=== PATIENT | female | born 1955 | race African-American/Black ===

== ENCOUNTER 2018-09-17 21:35 | Observation (INO) ==
[2018-09-17] MEDS ORDERED: FUROSEMIDE 100 MG/10 ML VIAL IV STA (22:18)
[2018-09-17 23:07] LABS: Neutrophils % 62.2 % (38.7-73.9)
[2018-09-17 23:19] LABS: Mean Platelet Volume 11.8 FL (9.6-12.0)
[2018-09-17 23:28] LABS: Basophils % 0.4 % (0.0-0.8); Eosinophils # 0.1 10*3/uL (0.0-0.87); Eosinophils % 1.9 % (0.00-10.9); Hematocrit 30.2 VOL% (35.7-47.0); Hemoglobin 8.3 GM/DL (12.0-16.0); Immature Granulocytes % 0.2 %; Immature Granulocytes Absolute 0.01 #; Lymphocytes # 1.4 10*3/uL (1.4-4.0); Lymphocytes % 26.4 % (21.3-54.2); Mean Corpuscular HGB Conc 27.5 GM/DL (32-36); Mean Corpuscular Volume 93.2 FL (87-102); Monocytes % 8.9 % (1.7-12.7); Platelet Count 206 T/CUMM (130-400); Red Blood Count 3.24 MC/CUMM (3.8-5.5); Red Cell Distribution Width 16.7 % (9.3-17.3); White Blood Count 5.2 T/CUMM (4-12)
[2018-09-17 23:33] LABS: Alanine Aminotransferase 13 U/L (13-56); Alkaline Phosphatase 94 U/L (45-117); Aspartate Amino Transferase 9 U/L (0-37); Bilirubin,Total < 0.39 MG/DL (0.2-1.0); Blood Urea Nitrogen 60 MG/DL (7-18); Calcium 8.5 MG/DL (8.5-10.1); Glucose 106 MG/DL (74-106); Osmolality,Calculated 308.4 MOS/KG (273-304); Total Protein 6.9 G/DL (6.4-8.3)
[2018-09-18] MEDS ORDERED: ONDANSETRON 4 MG/2 ML VIAL IV PRN (00:45)
[2018-09-18] MEDS: SODIUM CHLORIDE 0.9% 1,000 ML IV SCH ×4 (01:34→21:08)
[2018-09-18 01:45] LABS: Bilirubin,Total 0.5 MG/DL (0.2-1.0); Calcium 8.9 MG/DL (8.5-10.1); Osmolality,Calculated 309.4 MOS/KG (273-304); Total Protein 7.4 G/DL (6.4-8.3)
[2018-09-18 01:50] LABS: Risk Ratio 2.78; Thyroid Stimulating Hormone 3.84 uIU/ml (0.358-3.74); VLDL CHOLESTEROL 17.6 MG/DL
[2018-09-18] MEDS ORDERED: ALBUTEROL 2.5 MG/3 ML NEB RESP TX PRN (04:24)
[2018-09-18 05:50] LABS: Amorphous Crystals,Urine Occasional /HPF (Few); Apearance,Urine CLEAR (Clear); Bacteria,Urine Occasional /HPF (Few); Bilirubin,Urine Negative (Negative); Blood, Urine Negative (Negative); Glucose,Urine (UA) Negative (Negative); Ketones,Urine Negative (Negative); Mucus,Urine Occasional /LPF (Occasional); Nitrite,Urine Negative (Negative); Protein,Urine Negative; RBC,Urine <1 /HPF (0-4); Squamous Epithelial Cell,Urine Occasional /HPF (0-10); Urine Color Straw (Yellow); Urine Specific Gravity 1.006 (1.001-1.035); Urine Urobilinogen < 2.0 EU/DL (0.2-1.0); WBC,Urine <1 /HPF (0-6)
[2018-09-18] MEDS: ALBUTEROL/IPRATROPIUM 3 ML NEB RESP TX SCH ×4 (07:34→19:18)
[2018-09-18] MEDS ORDERED: FUROSEMIDE 80 MG TABLET PO SCH (09:00)
[2018-09-18] MEDS: CARVEDILOL 25 MG TABLET PO SCH ×2 (09:11→17:02)
[2018-09-18] MEDS: PANTOPRAZOLE 40 MG TABLET PO SCH (09:11)
[2018-09-18] MEDS: APIXABAN 5 MG TABLET PO SCH ×2 (09:11→21:08)
[2018-09-18] MEDS: DIGOXIN 0.125 MG TABLET PO SCH (14:14)
[2018-09-18] MEDS ORDERED: LOSARTAN 50 MG TABLET PO SCH (21:00)
[2018-09-19] MEDS: SODIUM CHLORIDE 0.9% 1,000 ML IV SCH ×2 (03:36→18:33)
[2018-09-19 06:36] LABS: Basophils % 0.7 % (0.0-0.8); Eosinophils # 0.1 10*3/uL (0.0-0.87); Eosinophils % 2.4 % (0.00-10.9); Hematocrit 29.5 VOL% (35.7-47.0); Hemoglobin 8.4 GM/DL (12.0-16.0); Immature Granulocytes % 0.2 %; Immature Granulocytes Absolute 0.01 #; Lymphocytes % 24.2 % (21.3-54.2); Mean Corpuscular HGB Conc 28.5 GM/DL (32-36); Mean Corpuscular Volume 91.9 FL (87-102); Mean Platelet Volume 12.2 FL (9.6-12.0); Monocytes % 10.4 % (1.7-12.7); Neutrophils % 62.1 % (38.7-73.9); Platelet Count 176 T/CUMM (130-400); Red Blood Count 3.21 MC/CUMM (3.8-5.5); Red Cell Distribution Width 16.6 % (9.3-17.3); White Blood Count 4.2 T/CUMM (4-12)
[2018-09-19 06:45] LABS: Calcium 8.8 MG/DL (8.5-10.1); Osmolality,Calculated 302.7 MOS/KG (273-304)
[2018-09-19 07:08] LABS: Hypochromasia 1+
[2018-09-19 07:09] LABS: Platelet Estimate Adequate
[2018-09-19] MEDS: ALBUTEROL/IPRATROPIUM 3 ML NEB RESP TX SCH ×3 (07:10→14:11)
[2018-09-19] MEDS ORDERED: IRON SUCROSE 200 MG in SODIUM CHLORIDE 0.9% 100 ML IV ONE (08:00)
[2018-09-19] MEDS: CARVEDILOL 25 MG TABLET PO SCH ×2 (10:43→17:00)
[2018-09-19] MEDS: PANTOPRAZOLE 40 MG TABLET PO SCH (10:43)
[2018-09-19] MEDS: APIXABAN 5 MG TABLET PO SCH (10:43)
[2018-09-19] MEDS ORDERED: FERROUS SULFATE 325 MG TABLET PO SCH (14:30)
[2018-09-19] MEDS: DIGOXIN 0.125 MG TABLET PO SCH (15:00)
[2018-09-19 16:43] VITALS: BP 134/67
== END 2018-09-19 18:44 | disposition home health service (06) ==
LOC: EDUNIT# → EDBD → N.ED 21:35 → N.EDINP 21:35 → N.TELES 09-18 02:40
PROVIDERS: ADMIT Internal Medicine; ATTEND Internal Medicine

== ENCOUNTER 2020-03-07 11:49 | Inpatient (IN) ==
[2020-03-07 12:43] LABS: Basophils % 0.5 % (0.0-0.8); Eosinophils % 0.2 % (0.00-10.9); Hematocrit 34.3 VOL% (35.7-47.0); Hemoglobin 10.2 GM/DL (12.0-16.0); Immature Granulocytes % 0.6 %; Immature Granulocytes Absolute 0.05 #; Lymphocytes # 1.1 10*3/uL (1.4-4.0); Lymphocytes % 12.2 % (21.3-54.2); Mean Corpuscular HGB Conc 29.7 GM/DL (32-36); Mean Corpuscular Volume 97.7 FL (87-102); Mean Platelet Volume 11.5 FL (9.6-12.0); Monocytes % 7.9 % (1.7-12.7); Neutrophils % 78.6 % (38.7-73.9); Platelet Count 171 T/CUMM (130-400); Red Blood Count 3.51 MC/CUMM (3.8-5.5); Red Cell Distribution Width 16.5 % (9.3-17.3); White Blood Count 8.7 T/CUMM (4-12)
[2020-03-07 13:00] LABS: Albumin 3.1 G/DL (3.4-5.0); Bilirubin,Total 0.4 MG/DL (0.2-1.0); Calcium 8.3 MG/DL (8.5-10.1); Osmolality,Calculated 289.3 MOS/KG (273-304); Total Protein 7.9 G/DL (6.4-8.3)
[2020-03-07 14:01] LABS: Bacteria,Urine Moderate /HPF (Few); Bilirubin,Urine Negative (Negative); Blood, Urine Negative (Negative); Glucose,Urine (UA) Negative (Negative); Ketones,Urine Negative (Negative); Nitrite,Urine Negative (Negative); Protein,Urine 100 MG/DL; RBC,Urine 27 /HPF (0-4); Squamous Epithelial Cell,Urine Occasional /HPF (0-10); Urine Appearance CLOUDY (Clear); Urine Color Yellow (Yellow); Urine Specific Gravity 1.017 (1.001-1.035); WBC,Urine 756 /HPF (0-6)
[2020-03-07] MEDS ORDERED: LEVOFLOXACIN INJ 750 MG in PREMIX 1 EACH IV STA (14:14)
[2020-03-07 14:22] LABS: Barbiturates Screen,Urine Negative (Negative); Benzodiazepines Screen,Urine Negative (Negative); Cannabinoid Screen,Urine Negative (Negative); Opiate Screen,Urine Negative (Negative); Phencyclidine Screen,Urine Negative (Negative)
[2020-03-07 16:17] LABS: Pt O2 Delivery Device Simple Mask
[2020-03-07 16:18] LABS: ABG Base Excess 5.3 MMOL/L (-2.5-2.5); ABG HCO3 29.2 MMOL/L (20-26); ABG Oxygen Saturation 98.4 % (95-100); ABG TCO2 36.3 MMOL/L (23-27)
[2020-03-07 16:25] LABS: ABG PH 7.144 (7.35-7.45)
[2020-03-07] MEDS ORDERED: ALBUTEROL 2.5 MG/3 ML NEB RESP TX PRN (17:50)
[2020-03-07 18:18] LABS: PT Patient Result 11.2 SECS (9.8-11.9)
[2020-03-07 18:28] LABS: Troponin I < 0.015 NG/ML (0.00-0.045)
[2020-03-07] MEDS ORDERED: LEVOFLOXACIN INJ 0 ML IV ONE (19:34)
[2020-03-07] MEDS: CEFEPIME 1,000 MG in SODIUM CHLORIDE 0.9% 100 ML IV SCH (20:06)
[2020-03-07 20:07] LABS: Thyroid Stimulating Hormone 2.71 uIU/ml (0.358-3.74)
[2020-03-07] MEDS: PANTOPRAZOLE 40 MG TABLET PO SCH (21:18)
[2020-03-07] MEDS: ENOXAPARIN 40 MG/0.4 ML SYRINGE SUBCUT SCH (21:18)
[2020-03-08] MEDS: CEFEPIME 1,000 MG in SODIUM CHLORIDE 0.9% 100 ML IV SCH ×4 (00:07→22:09)
[2020-03-08] MEDS: OSELTAMIVIR 6 MG/ML 60 ML/BOTTLE PO SCH ×3 (02:44→22:10)
[2020-03-08 03:47] LABS: ABG Base Excess 7.1 MMOL/L (-2.5-2.5); ABG HCO3 37.9 MMOL/L (20-26); ABG Oxygen Saturation 98.4 % (95-100); ABG PO2 133.6 MM HG (80-95); ABG TCO2 41.1 MMOL/L (23-27); Allen Test Positive; Pt O2 Delivery Device BIPAP
[2020-03-08 03:50] LABS: ABG PCO2 102.3 MM HG (35-48); ABG PH 7.187 (7.35-7.45)
[2020-03-08 04:09] LABS: Basophils % 0.3 % (0.0-0.8); Eosinophils % 0.1 % (0.00-10.9); Hematocrit 33.9 VOL% (35.7-47.0); Immature Granulocytes % 1.6 %; Immature Granulocytes Absolute 0.12 #; Lymphocytes # 1.3 10*3/uL (1.4-4.0); Lymphocytes % 17.3 % (21.3-54.2); Mean Corpuscular HGB Conc 28.6 GM/DL (32-36); Mean Corpuscular Volume 101.5 FL (87-102); Mean Platelet Volume 11.7 FL (9.6-12.0); Monocytes % 10.8 % (1.7-12.7); Neutrophils % 69.9 % (38.7-73.9); Platelet Count 175 T/CUMM (130-400); Red Blood Count 3.34 MC/CUMM (3.8-5.5); Red Cell Distribution Width 16.4 % (9.3-17.3); White Blood Count 7.3 T/CUMM (4-12)
[2020-03-08 04:14] LABS: Hemoglobin 9.7 GM/DL (12.0-16.0)
[2020-03-08 04:18] LABS: Alanine Aminotransferase 22 U/L (13-56); Albumin 2.9 G/DL (3.4-5.0); Alkaline Phosphatase 114 U/L (45-117); Aspartate Amino Transferase 18 U/L (0-37); Bilirubin,Total < 0.39 MG/DL (0.2-1.0); Blood Urea Nitrogen 36 MG/DL (7-18); Calcium 8.1 MG/DL (8.5-10.1); Estimated Glom Filtration Rate 34 ML/MIN; Glucose 103 MG/DL (74-106); Osmolality,Calculated 290.1 MOS/KG (273-304); Total Protein 7.7 G/DL (6.4-8.3)
[2020-03-08] MEDS ORDERED: allopurinoL 300 MG TABLET PO SCH (09:00)
[2020-03-08] MEDS: ENOXAPARIN 40 MG/0.4 ML SYRINGE SUBCUT SCH (09:00)
[2020-03-08] MEDS: PANTOPRAZOLE 40 MG TABLET PO SCH ×2 (09:00→22:10)
[2020-03-08] MEDS ORDERED: FUROSEMIDE 80 MG TABLET PO SCH (09:00)
[2020-03-08] MEDS ORDERED: DIGOXIN 0.125 MG TABLET PO SCH (13:00)
[2020-03-08] MEDS ORDERED: ALBUTEROL 2.5 MG/3 ML NEB RESP TX PRN (20:32)
[2020-03-09] MEDS: CEFEPIME 1,000 MG in SODIUM CHLORIDE 0.9% 100 ML IV SCH ×4 (04:53→21:06)
[2020-03-09 06:20] LABS: Basophils % 0.2 % (0.0-0.8); Eosinophils % 0.3 % (0.00-10.9); Hematocrit 30.1 VOL% (35.7-47.0); Hemoglobin 9.1 GM/DL (12.0-16.0); Immature Granulocytes % 0.7 %; Immature Granulocytes Absolute 0.04 #; Lymphocytes # 1.1 10*3/uL (1.4-4.0); Lymphocytes % 18.6 % (21.3-54.2); Mean Corpuscular HGB Conc 30.2 GM/DL (32-36); Mean Platelet Volume 11.9 FL (9.6-12.0); Monocytes % 10.9 % (1.7-12.7); Neutrophils % 69.3 % (38.7-73.9); Platelet Count 151 T/CUMM (130-400); Red Blood Count 3.07 MC/CUMM (3.8-5.5); Red Cell Distribution Width 16.1 % (9.3-17.3)
[2020-03-09 06:49] LABS: Albumin 2.7 G/DL (3.4-5.0); Bilirubin,Total 0.8 MG/DL (0.2-1.0); Calcium 8.3 MG/DL (8.5-10.1); Osmolality,Calculated 294.1 MOS/KG (273-304); Total Protein 7.3 G/DL (6.4-8.3)
[2020-03-09] MEDS: OSELTAMIVIR 6 MG/ML 60 ML/BOTTLE PO SCH ×2 (08:59→21:02)
[2020-03-09] MEDS: allopurinoL 300 MG TABLET PO SCH (09:00)
[2020-03-09] MEDS ORDERED: ENOXAPARIN 40 MG/0.4 ML SYRINGE SUBCUT SCH (09:00)
[2020-03-09] MEDS ORDERED: FUROSEMIDE 80 MG TABLET PO SCH (09:00)
[2020-03-09] MEDS: PANTOPRAZOLE 40 MG TABLET PO SCH ×2 (09:00→21:03)
[2020-03-09] MEDS: ENOXAPARIN 40 MG/0.4 ML SYRINGE SUBCUT SCH ×2 (09:01→21:02)
[2020-03-09 10:14] LABS: ABG Base Excess 9.1 MMOL/L (-2.5-2.5); ABG HCO3 36.5 MMOL/L (20-26); ABG Oxygen Saturation 98.2 % (95-100); ABG PCO2 68.9 MM HG (35-48); ABG PH 7.342 (7.35-7.45); ABG PO2 123.8 MM HG (80-95); ABG TCO2 38.6 MMOL/L (23-27)
[2020-03-09] MEDS: DIGOXIN 0.125 MG TABLET PO SCH (14:02)
[2020-03-09] MEDS: FUROSEMIDE 40 MG/4 ML VIAL IV SCH (15:16)
[2020-03-09] MEDS: LACTULOSE 20 GM/30 ML UDCUP PO PRN (16:37)
[2020-03-09] MEDS: PHENAZOPYRIDINE 95 MG TABLET PO SCH (16:38)
[2020-03-09] MEDS: BUDESONIDE/FORMOTEROL 160-4.5 INHALER 6 GM INH SCH (21:02)
[2020-03-09] MEDS: carvediloL 25 MG TABLET PO SCH (21:03)
[2020-03-10] MEDS: CEFEPIME 1,000 MG in SODIUM CHLORIDE 0.9% 100 ML IV SCH ×4 (02:24→23:06)
[2020-03-10 06:35] LABS: Basophils % 0.2 % (0.0-0.8); Eosinophils # 0.1 10*3/uL (0.0-0.87); Eosinophils % 1.1 % (0.00-10.9); Hematocrit 30.4 VOL% (35.7-47.0); Hemoglobin 9.3 GM/DL (12.0-16.0); Immature Granulocytes % 0.5 %; Immature Granulocytes Absolute 0.03 #; Lymphocytes # 1.1 10*3/uL (1.4-4.0); Lymphocytes % 20.1 % (21.3-54.2); Mean Corpuscular HGB Conc 30.6 GM/DL (32-36); Mean Corpuscular Volume 95.9 FL (87-102); Mean Platelet Volume 12.1 FL (9.6-12.0); Monocytes % 10.1 % (1.7-12.7); Platelet Count 172 T/CUMM (130-400); Red Blood Count 3.17 MC/CUMM (3.8-5.5); Red Cell Distribution Width 15.9 % (9.3-17.3); White Blood Count 5.6 T/CUMM (4-12)
[2020-03-10 06:56] LABS: Calcium 8.5 MG/DL (8.5-10.1); Osmolality,Calculated 296.8 MOS/KG (273-304)
[2020-03-10] MEDS: FUROSEMIDE 40 MG/4 ML VIAL IV SCH ×2 (09:22→16:28)
[2020-03-10] MEDS: carvediloL 25 MG TABLET PO SCH ×2 (09:22→23:07)
[2020-03-10] MEDS: PHENAZOPYRIDINE 95 MG TABLET PO SCH ×2 (09:22→16:30)
[2020-03-10] MEDS: PANTOPRAZOLE 40 MG TABLET PO SCH ×2 (09:23→23:07)
[2020-03-10] MEDS: allopurinoL 300 MG TABLET PO SCH (09:23)
[2020-03-10] MEDS: ENOXAPARIN 40 MG/0.4 ML SYRINGE SUBCUT SCH ×2 (09:23→23:07)
[2020-03-10] MEDS: OSELTAMIVIR 6 MG/ML 60 ML/BOTTLE PO SCH ×2 (09:26→23:07)
[2020-03-10] MEDS: BUDESONIDE/FORMOTEROL 160-4.5 INHALER 6 GM INH SCH ×2 (09:27→23:07)
[2020-03-10] MEDS: DIGOXIN 0.125 MG TABLET PO SCH (12:55)
[2020-03-11] MEDS: CEFEPIME 1,000 MG in SODIUM CHLORIDE 0.9% 100 ML IV SCH ×3 (04:32→21:26)
[2020-03-11 05:39] LABS: Basophils % 0.4 % (0.0-0.8); Eosinophils # 0.1 10*3/uL (0.0-0.87); Eosinophils % 1.2 % (0.00-10.9); Hematocrit 30.8 VOL% (35.7-47.0); Hemoglobin 9.2 GM/DL (12.0-16.0); Immature Granulocytes % 0.4 %; Immature Granulocytes Absolute 0.02 #; Lymphocytes # 1.1 10*3/uL (1.4-4.0); Lymphocytes % 21.2 % (21.3-54.2); Mean Corpuscular HGB Conc 29.9 GM/DL (32-36); Mean Corpuscular Volume 97.8 FL (87-102); Mean Platelet Volume 11.6 FL (9.6-12.0); Monocytes % 7.6 % (1.7-12.7); Neutrophils % 69.2 % (38.7-73.9); Platelet Count 173 T/CUMM (130-400); Red Blood Count 3.15 MC/CUMM (3.8-5.5); Red Cell Distribution Width 15.8 % (9.3-17.3); White Blood Count 5.1 T/CUMM (4-12)
[2020-03-11 05:59] LABS: Calcium 8.6 MG/DL (8.5-10.1); Osmolality,Calculated 299.7 MOS/KG (273-304)
[2020-03-11] MEDS: PANTOPRAZOLE 40 MG TABLET PO SCH ×2 (09:04→21:26)
[2020-03-11] MEDS: MULTIVITAMIN (CENTRUM) TABLET PO SCH (09:04)
[2020-03-11] MEDS: PHENAZOPYRIDINE 95 MG TABLET PO SCH ×2 (09:06→17:37)
[2020-03-11] MEDS: carvediloL 25 MG TABLET PO SCH ×2 (09:07→21:26)
[2020-03-11] MEDS: OSELTAMIVIR 6 MG/ML 60 ML/BOTTLE PO SCH ×2 (09:08→21:26)
[2020-03-11] MEDS: FUROSEMIDE 40 MG/4 ML VIAL IV SCH ×2 (09:10→17:26)
[2020-03-11] MEDS: BUDESONIDE/FORMOTEROL 160-4.5 INHALER 6 GM INH SCH ×2 (09:10→21:27)
[2020-03-11] MEDS: ENOXAPARIN 40 MG/0.4 ML SYRINGE SUBCUT SCH ×2 (10:34→21:26)
[2020-03-11] MEDS: allopurinoL 300 MG TABLET PO SCH (10:35)
[2020-03-11] MEDS ORDERED: CEFEPIME 1,000 MG in SODIUM CHLORIDE 0.9% 100 ML IV ONE (12:00)
[2020-03-11] MEDS: DIGOXIN 0.125 MG TABLET PO SCH (13:19)
[2020-03-11] MEDS: LACTULOSE 20 GM/30 ML UDCUP PO PRN (17:37)
[2020-03-12] MEDS: CEFEPIME 1,000 MG in SODIUM CHLORIDE 0.9% 100 ML IV SCH ×4 (03:04→21:08)
[2020-03-12 05:17] LABS: Basophils % 0.6 % (0.0-0.8); Eosinophils # 0.1 10*3/uL (0.0-0.87); Eosinophils % 1.4 % (0.00-10.9); Hemoglobin 9.4 GM/DL (12.0-16.0); Immature Granulocytes % 0.4 %; Immature Granulocytes Absolute 0.02 #; Lymphocytes # 1.1 10*3/uL (1.4-4.0); Lymphocytes % 22.4 % (21.3-54.2); Mean Corpuscular HGB Conc 29.4 GM/DL (32-36); Mean Corpuscular Volume 99.7 FL (87-102); Mean Platelet Volume 11.9 FL (9.6-12.0); Monocytes % 7.5 % (1.7-12.7); Neutrophils % 67.7 % (38.7-73.9); Platelet Count 180 T/CUMM (130-400); Red Blood Count 3.21 MC/CUMM (3.8-5.5); Red Cell Distribution Width 15.6 % (9.3-17.3)
[2020-03-12 05:41] LABS: Calcium 8.9 MG/DL (8.5-10.1); Osmolality,Calculated 295.8 MOS/KG (273-304)
[2020-03-12] MEDS: BUDESONIDE/FORMOTEROL 160-4.5 INHALER 6 GM INH SCH ×2 (09:00→21:15)
[2020-03-12] MEDS: OSELTAMIVIR 6 MG/ML 60 ML/BOTTLE PO SCH ×2 (09:00→21:15)
[2020-03-12] MEDS: ENOXAPARIN 40 MG/0.4 ML SYRINGE SUBCUT SCH ×2 (09:00→21:14)
[2020-03-12] MEDS: LACTULOSE 20 GM/30 ML UDCUP PO PRN (09:00)
[2020-03-12] MEDS: MULTIVITAMIN (CENTRUM) TABLET PO SCH (09:01)
[2020-03-12] MEDS: PANTOPRAZOLE 40 MG TABLET PO SCH ×2 (09:01→21:07)
[2020-03-12] MEDS: carvediloL 25 MG TABLET PO SCH ×2 (09:01→21:07)
[2020-03-12] MEDS: allopurinoL 300 MG TABLET PO SCH (09:16)
[2020-03-12] MEDS: FUROSEMIDE 40 MG/4 ML VIAL IV SCH ×2 (09:24→17:24)
[2020-03-12 10:54] LABS: Allen Test Positive
[2020-03-12 10:55] LABS: ABG Base Excess 12.2 MMOL/L (-2.5-2.5); ABG HCO3 41.7 MMOL/L (20-26); ABG Oxygen Saturation 98.6 % (95-100); ABG PH 7.281 (7.35-7.45); ABG PO2 140.9 MM HG (80-95); ABG TCO2 44.4 MMOL/L (23-27)
[2020-03-12 10:57] LABS: ABG PCO2 90.5 MM HG (35-48)
[2020-03-12] MEDS: DIGOXIN 0.125 MG TABLET PO SCH ×2 (15:43→17:04)
[2020-03-12 16:47] LABS: ABG Base Excess 11.1 MMOL/L (-2.5-2.5); ABG HCO3 34.8 MMOL/L (20-26); ABG Oxygen Saturation 94.2 % (95-100); ABG PH 7.349 (7.35-7.45); ABG PO2 69.9 MM HG (80-95); ABG TCO2 36.3 MMOL/L (23-27)
[2020-03-12 16:48] LABS: ABG PCO2 71.1 MM HG (35-48)
[2020-03-12] MEDS: methylPREDNISolone SOD SUC 40 MG/1 ML VIAL IV SCH ×2 (17:25→23:42)
[2020-03-13] MEDS: CEFEPIME 1,000 MG in SODIUM CHLORIDE 0.9% 100 ML IV SCH ×2 (02:00→09:22)
[2020-03-13 08:43] LABS: Basophils % 0.3 % (0.0-0.8); Hematocrit 34.4 VOL% (35.7-47.0); Hemoglobin 10.4 GM/DL (12.0-16.0); Immature Granulocytes % 0.5 %; Immature Granulocytes Absolute 0.02 #; Lymphocytes # 0.6 10*3/uL (1.4-4.0); Mean Corpuscular HGB Conc 30.2 GM/DL (32-36); Mean Corpuscular Volume 95.3 FL (87-102); Mean Platelet Volume 11.2 FL (9.6-12.0); Monocytes % 1.3 % (1.7-12.7); Neutrophils % 81.9 % (38.7-73.9); Platelet Count 178 T/CUMM (130-400); Red Blood Count 3.61 MC/CUMM (3.8-5.5); Red Cell Distribution Width 15.3 % (9.3-17.3); White Blood Count 3.9 T/CUMM (4-12)
[2020-03-13 09:00] LABS: Calcium 9.4 MG/DL (8.5-10.1); Osmolality,Calculated 294.1 MOS/KG (273-304)
[2020-03-13] MEDS: FUROSEMIDE 40 MG/4 ML VIAL IV SCH (09:21)
[2020-03-13] MEDS: THEOPHYLLINE ER (24 HR) 400 MG TABLET PO SCH (09:21)
[2020-03-13] MEDS: methylPREDNISolone SOD SUC 40 MG/1 ML VIAL IV SCH ×2 (09:21→21:53)
[2020-03-13] MEDS: MULTIVITAMIN (CENTRUM) TABLET PO SCH (09:22)
[2020-03-13] MEDS: PANTOPRAZOLE 40 MG TABLET PO SCH ×2 (09:22→21:53)
[2020-03-13] MEDS: carvediloL 25 MG TABLET PO SCH ×2 (09:22→21:53)
[2020-03-13] MEDS: ENOXAPARIN 40 MG/0.4 ML SYRINGE SUBCUT SCH ×2 (09:22→21:53)
[2020-03-13] MEDS: DIGOXIN 0.125 MG TABLET PO SCH (12:01)
[2020-03-13] MEDS: allopurinoL 300 MG TABLET PO SCH (12:02)
[2020-03-13] MEDS: BUDESONIDE/FORMOTEROL 160-4.5 INHALER 6 GM INH SCH ×2 (12:02→21:53)
[2020-03-13] MEDS: OSELTAMIVIR 6 MG/ML 60 ML/BOTTLE PO SCH ×2 (16:50→21:53)
[2020-03-13] MEDS: DOXYCYCLINE HYCLATE 100 MG CAPSULE PO SCH (21:53)
[2020-03-14 06:32] LABS: Basophils % 0.2 % (0.0-0.8); Hematocrit 32.9 VOL% (35.7-47.0); Immature Granulocytes % 0.4 %; Immature Granulocytes Absolute 0.02 #; Lymphocytes # 0.6 10*3/uL (1.4-4.0); Lymphocytes % 13.6 % (21.3-54.2); Mean Corpuscular HGB Conc 30.4 GM/DL (32-36); Mean Corpuscular Volume 95.4 FL (87-102); Mean Platelet Volume 12.3 FL (9.6-12.0); Monocytes % 2.1 % (1.7-12.7); Neutrophils % 83.7 % (38.7-73.9); Platelet Count 200 T/CUMM (130-400); Red Blood Count 3.45 MC/CUMM (3.8-5.5); Red Cell Distribution Width 15.3 % (9.3-17.3); White Blood Count 4.7 T/CUMM (4-12)
[2020-03-14 06:38] LABS: Calcium 8.9 MG/DL (8.5-10.1); Osmolality,Calculated 291.5 MOS/KG (273-304)
[2020-03-14] MEDS ORDERED: FUROSEMIDE 40 MG TABLET PO SCH (09:00)
[2020-03-14] MEDS: allopurinoL 300 MG TABLET PO SCH (09:59)
[2020-03-14] MEDS: PANTOPRAZOLE 40 MG TABLET PO SCH (09:59)
[2020-03-14] MEDS: DOXYCYCLINE HYCLATE 100 MG CAPSULE PO SCH (09:59)
[2020-03-14] MEDS: carvediloL 25 MG TABLET PO SCH (09:59)
[2020-03-14] MEDS: THEOPHYLLINE ER (24 HR) 400 MG TABLET PO SCH (09:59)
[2020-03-14] MEDS: MULTIVITAMIN (CENTRUM) TABLET PO SCH (10:00)
[2020-03-14] MEDS: methylPREDNISolone SOD SUC 40 MG/1 ML VIAL IV SCH (10:00)
[2020-03-14] MEDS: ENOXAPARIN 40 MG/0.4 ML SYRINGE SUBCUT SCH (10:00)
[2020-03-14] MEDS: BUDESONIDE/FORMOTEROL 160-4.5 INHALER 6 GM INH SCH (10:00)
[2020-03-14] MEDS ORDERED: predniSONE 20 MG TABLET PO SCH (10:30)
[2020-03-14 12:34] VITALS: BP 155/93
[2020-03-14] MEDS: DIGOXIN 0.125 MG TABLET PO SCH (14:10)
== END 2020-03-14 15:13 | DRG 189 ==
LOC: EDUNIT# → EDBD → N.ED 11:49 → SUATTDRO 15:28 → N.EDINP 15:28 → N.TELEN 03-08 13:42
PROVIDERS: ADMIT Internal Medicine; ATTEND Family Medicine

== ENCOUNTER 2021-07-03 01:35 | Inpatient (IN) ==
[2021-07-03] MEDS ORDERED: methylPREDNISolone SOD SUC 125 MG/2 ML VIAL IV STA (02:17)
[2021-07-03] MEDS ORDERED: FUROSEMIDE 100 MG/10 ML VIAL IV STA (02:17)
[2021-07-03] MEDS ORDERED: ALBUTEROL/IPRATROPIUM 3 ML NEB RESP TX STA (02:17)
[2021-07-03] MEDS ORDERED: hydrALAZINE 20 MG/1 ML VIAL IV STA (02:17)
[2021-07-03] MEDS ORDERED: ONDANSETRON 4 MG/2 ML VIAL IV STA (02:17)
[2021-07-03 02:30] LABS: Basophils % 0.3 % (0.0-0.8); Eosinophils # 0.1 10*3/uL (0.0-0.87); Eosinophils % 0.5 % (0.00-10.9); Hemoglobin 10.9 GM/DL (12.0-16.0); Immature Granulocytes % 0.4 %; Immature Granulocytes Absolute 0.04 #; Lymphocytes # 0.7 10*3/uL (1.4-4.0); Lymphocytes % 7.1 % (21.3-54.2); Mean Corpuscular HGB Conc 30.3 GM/DL (32-36); Mean Platelet Volume 12.5 FL (9.6-12.0); Monocytes % 5.7 % (1.7-12.7); Platelet Count 117 T/CUMM (130-400); Red Cell Distribution Width 14.6 % (9.3-17.3); White Blood Count 10.4 T/CUMM (4-12)
[2021-07-03 02:40] LABS: INR 1.1; PT Patient Result 12.4 SECS (10.5-12.0)
[2021-07-03 03:01] LABS: Albumin 3.5 G/DL (3.4-5.0); Bilirubin,Total 0.5 MG/DL (0.20-1.00); Calcium 8.5 MG/DL (8.5-10.1); Osmolality,Calculated 289.3 MOS/KG (273-304); Potassium 3.9 MMOL/L (3.5-5.1); Total Protein 7.3 G/DL (6.4-8.2)
[2021-07-03 03:30] LABS: Bacteria,Urine Occasional /HPF (Few); RBC,Urine 2 /HPF (0-4); Squamous Epithelial Cell,Urine Occasional /HPF (0-10)
[2021-07-03 03:31] LABS: Bilirubin,Urine Negative (Negative); Blood, Urine Trace mg/dL (Negative); Glucose,Urine (UA) Negative (Negative); Ketones,Urine Negative (Negative); Nitrite,Urine Negative (Negative); Protein,Urine 100 mg/dL (Negative); Urine Appearance Clear (Clear); Urine Color Yellow (Yellow); Urine Urobilinogen 0.2 eU/dL (<2.0); Urine pH 5.5 (4.5-8.0)
[2021-07-03] MEDS ORDERED: MAGNESIUM SULF RIDER 4 GM/100 ML PREMIX IV PRN (04:17)
[2021-07-03] MEDS ORDERED: MAGNESIUM SULF RIDER 2 GM/50 ML PREMIX IV PRN (04:17)
[2021-07-03] MEDS ORDERED: hydrALAZINE 20 MG/1 ML VIAL IV PRN (04:17)
[2021-07-03 06:27] LABS: Basophils % 0.2 % (0.0-0.8); Eosinophils % 0.1 % (0.00-10.9); Hematocrit 35.3 VOL% (35.7-47.0); Hemoglobin 10.9 GM/DL (12.0-16.0); Lymphocytes # 0.6 10*3/uL (1.4-4.0); Lymphocytes % 3.1 % (21.3-54.2); Mean Corpuscular HGB Conc 30.9 GM/DL (32-36); Mean Corpuscular Volume 101.1 FL (87-102); Mean Platelet Volume 12.3 FL (9.6-12.0); Monocytes % 3.2 % (1.7-12.7); Neutrophils % 92.4 % (38.7-73.9); Platelet Count 128 T/CUMM (130-400); Red Blood Count 3.49 MC/CUMM (3.8-5.5); Red Cell Distribution Width 14.6 % (9.3-17.3); White Blood Count 19.1 T/CUMM (4-12)
[2021-07-03 06:46] LABS: Albumin 3.5 G/DL (3.4-5.0); Bilirubin,Total 1.3 MG/DL (0.20-1.00); Calcium 8.9 MG/DL (8.5-10.1); Osmolality,Calculated 291.3 MOS/KG (273-304); Potassium 3.4 MMOL/L (3.5-5.1); Total Protein 7.8 G/DL (6.4-8.2)
[2021-07-03 06:47] LABS: Band Neutrophils 9 % (0-10); Lymphocytes 1 % (20-55); Metamyelocytes 2 %; Segmented Neutrophils 84 % (50-85); Total Cells Counted 100
[2021-07-03 06:48] LABS: Hypochromia 1+; Macrocytosis Slight; Platelet Estimate Adequate
[2021-07-03] MEDS: LEVOFLOXACIN INJ 750 MG/150 ML PREMIX IV SCH (07:00)
[2021-07-03] MEDS: FUROSEMIDE 40 MG/4 ML VIAL IV SCH ×2 (08:03→16:36)
[2021-07-03] MEDS: ENOXAPARIN 40 MG/0.4 ML SYRINGE SUBCUT SCH (09:05)
[2021-07-03] MEDS: carvediloL 25 MG TABLET PO SCH ×2 (11:57→20:57)
[2021-07-03] MEDS: POTASSIUM CHLORIDE 20 MEQ TABLET PO SCH (11:57)
[2021-07-04 05:21] LABS: Basophils % 0.1 % (0.0-0.8); Hematocrit 35.3 VOL% (35.7-47.0); Hemoglobin 10.5 GM/DL (12.0-16.0); Lymphocytes # 0.7 10*3/uL (1.4-4.0); Lymphocytes % 7.1 % (21.3-54.2); Mean Corpuscular HGB Conc 29.7 GM/DL (32-36); Mean Corpuscular Volume 101.7 FL (87-102); Mean Platelet Volume 12.5 FL (9.6-12.0); Monocytes % 5.3 % (1.7-12.7); Neutrophils % 87.2 % (38.7-73.9); Platelet Count 112 T/CUMM (130-400); Red Blood Count 3.47 MC/CUMM (3.8-5.5); Red Cell Distribution Width 14.6 % (9.3-17.3); White Blood Count 9.8 T/CUMM (4-12)
[2021-07-04 05:44] LABS: Albumin 3.1 G/DL (3.4-5.0); Bilirubin,Total 0.5 MG/DL (0.20-1.00); Calcium 8.5 MG/DL (8.5-10.1); Osmolality,Calculated 295.1 MOS/KG (273-304); Total Protein 7.2 G/DL (6.4-8.2)
[2021-07-04] MEDS: LEVOFLOXACIN INJ 750 MG/150 ML PREMIX IV SCH (05:49)
[2021-07-04] MEDS: FUROSEMIDE 40 MG/4 ML VIAL IV SCH ×2 (09:46→17:35)
[2021-07-04] MEDS: ENOXAPARIN 40 MG/0.4 ML SYRINGE SUBCUT SCH (09:47)
[2021-07-04] MEDS: POTASSIUM CHLORIDE 20 MEQ TABLET PO SCH (09:47)
[2021-07-04] MEDS: carvediloL 25 MG TABLET PO SCH ×2 (09:47→21:04)
[2021-07-04] MEDS ORDERED: LACTULOSE 20 GM/30 ML UDCUP PO PRN (20:03)
[2021-07-04] MEDS: PANTOPRAZOLE 40 MG TABLET PO SCH (21:04)
[2021-07-04] MEDS: APIXABAN 5 MG TABLET PO SCH (21:05)
[2021-07-05] MEDS: POTASSIUM CHLORIDE 20 MEQ TABLET PO SCH (09:34)
[2021-07-05] MEDS: ONDANSETRON 4 MG/2 ML VIAL IV PRN (09:34)
[2021-07-05] MEDS: carvediloL 25 MG TABLET PO SCH ×2 (09:35→21:14)
[2021-07-05] MEDS: ASPIRIN EC 81 MG TABLET PO SCH (09:35)
[2021-07-05] MEDS: FUROSEMIDE 40 MG/4 ML VIAL IV SCH ×2 (09:35→17:45)
[2021-07-05] MEDS: PANTOPRAZOLE 40 MG TABLET PO SCH ×2 (09:35→21:13)
[2021-07-05] MEDS: allopurinoL 100 MG TABLET PO SCH (09:36)
[2021-07-05] MEDS: APIXABAN 5 MG TABLET PO SCH ×2 (09:55→21:13)
[2021-07-05] MEDS: FLUTICASONE 50 MCG NASAL SPRAY 16 GM BOTTLE BOTH NARES SCH (09:55)
[2021-07-05 11:42] LABS: Basophils % 0.4 % (0.0-0.8); Eosinophils % 0.2 % (0.00-10.9); Hematocrit 34.7 VOL% (35.7-47.0); Hemoglobin 10.5 GM/DL (12.0-16.0); Lymphocytes # 1.4 10*3/uL (1.4-4.0); Mean Corpuscular HGB Conc 30.3 GM/DL (32-36); Mean Corpuscular Volume 101.8 FL (87-102); Mean Platelet Volume 12.6 FL (9.6-12.0); Monocytes % 6.4 % (1.7-12.7); Neutrophils % 76.6 % (38.7-73.9); Platelet Count 128 T/CUMM (130-400); Red Blood Count 3.41 MC/CUMM (3.8-5.5); Red Cell Distribution Width 14.7 % (9.3-17.3); White Blood Count 8.5 T/CUMM (4-12)
[2021-07-05 12:02] LABS: Calcium 8.1 MG/DL (8.5-10.1); Osmolality,Calculated 298.1 MOS/KG (273-304); Potassium 3.6 MMOL/L (3.5-5.1)
[2021-07-05] MEDS: POLYETHYLENE GLYCOL POWDER 17 GM PACK PO SCH (13:05)
[2021-07-05] MEDS: DIGOXIN 0.125 MG TABLET PO SCH (13:10)
[2021-07-06 05:29] LABS: Basophils % 0.4 % (0.0-0.8); Eosinophils # 0.1 10*3/uL (0.0-0.87); Eosinophils % 0.9 % (0.00-10.9); Hematocrit 32.3 VOL% (35.7-47.0); Hemoglobin 9.7 GM/DL (12.0-16.0); Immature Granulocytes % 0.4 %; Immature Granulocytes Absolute 0.03 #; Lymphocytes # 1.8 10*3/uL (1.4-4.0); Lymphocytes % 23.4 % (21.3-54.2); Mean Corpuscular Volume 101.3 FL (87-102); Mean Platelet Volume 12.2 FL (9.6-12.0); Monocytes % 8.4 % (1.7-12.7); Neutrophils % 66.5 % (38.7-73.9); Platelet Count 139 T/CUMM (130-400); Red Blood Count 3.19 MC/CUMM (3.8-5.5); Red Cell Distribution Width 14.6 % (9.3-17.3); White Blood Count 7.5 T/CUMM (4-12)
[2021-07-06 05:45] LABS: Calcium 8.2 MG/DL (8.5-10.1); Osmolality,Calculated 297.1 MOS/KG (273-304); Potassium 3.7 MMOL/L (3.5-5.1)
[2021-07-06] MEDS ORDERED: LEVOFLOXACIN INJ 750 MG/150 ML PREMIX IV SCH (06:00)
[2021-07-06] MEDS: ONDANSETRON 4 MG/2 ML VIAL IV PRN (07:55)
[2021-07-06] MEDS: FUROSEMIDE 40 MG/4 ML VIAL IV SCH (09:44)
[2021-07-06] MEDS: POTASSIUM CHLORIDE 20 MEQ TABLET PO SCH (10:03)
[2021-07-06] MEDS: APIXABAN 5 MG TABLET PO SCH (10:03)
[2021-07-06] MEDS: PANTOPRAZOLE 40 MG TABLET PO SCH (10:04)
[2021-07-06] MEDS: allopurinoL 100 MG TABLET PO SCH (10:04)
[2021-07-06] MEDS: FLUTICASONE 50 MCG NASAL SPRAY 16 GM BOTTLE BOTH NARES SCH ×2 (10:05→14:10)
[2021-07-06] MEDS: carvediloL 25 MG TABLET PO SCH (10:06)
[2021-07-06] MEDS: POLYETHYLENE GLYCOL POWDER 17 GM PACK PO SCH (10:09)
[2021-07-06] MEDS: ASPIRIN EC 81 MG TABLET PO SCH (10:09)
[2021-07-06 12:07] VITALS: BP 120/66
[2021-07-06] MEDS: DIGOXIN 0.125 MG TABLET PO SCH (14:10)
== END 2021-07-06 16:03 | DRG 291 ==
LOC: EDUNIT# → EDBD → N.ED 01:35 → N.EDINP 01:35 → SUATTDRO 04:47 → N.TELEN 15:28
PROVIDERS: ADMIT Internal Medicine; ATTEND Emergency Medicine